=== PATIENT | female | born 1960 | race Asian ===

== ENCOUNTER 2019-04-01 19:52 | Inpatient (IN) | payer SELFPAY ==
[~2019-04-01] VITALS: Ht 152.4 cm; Wt 61.3 kg
--- NOTE | 2019-04-01 20:23 | NUR ---
DR SANTOS AT [facility] WITH PT
[2019-04-01] MEDS ORDERED: calcium chloride 100 MG/1 ML inj IV ONE (20:40)
[2019-04-01] MEDS ORDERED: sodium polystyrene sulfonate 15gm/60ml oral suspension PO ONE (20:40)
[2019-04-01 20:48] LABS: BASOPHILS % (AUTO) 0.2 % (0-1); EOSINOPHILS % (AUTO) 0 % (0-6); HEMATOCRIT 30.3 % (35.0-45.0); HEMOGLOBIN 9.5 g/dl (12.0-16.0); LYMPHOCYTES # (AUTO) 1.3 X10'3 (1.1-4.8); LYMPHOCYTES % (AUTO) 10.5 % (21-51); MEAN CORPUSCULAR HEMOGLOBIN 27.3 PG (27.0-31.0); MEAN CORPUSCULAR HGB CONC 31.3 g/dL (33.0-36.5); MEAN CORPUSCULAR VOLUME 87.1 FL (78-98); MEAN PLATELET VOLUME 8.6 FL (7.4-10.4); MONOCYTES # (AUTO) 1.2 X10'3 (0-0.9); MONOCYTES % (AUTO) 9.8 % (2-12); NEUTROPHILS # (AUTO) 9.6 X10'3 (1.8-7.7); NEUTROPHILS % (AUTO) 79.5 % (42-75); PLATELET COUNT 200 X10'3 (140-440); RED BLOOD COUNT 3.48 X10'6 (4.20-5.60); RED CELL DISTRIBUTION WIDTH 14.9 % (11.5-14.5); WHITE BLOOD COUNT 12.1 X10'3 (4.5-11.0)
[2019-04-01 21:11] LABS: PARTIAL THROMBOPLASTIN TIME 32 SECONDS (22-32)
[2019-04-01 21:13] LABS: ALANINE AMINOTRANSFERASE 47 U/L (12-78); ALBUMIN 3.3 G/DL (3.4-5.0); ALBUMIN/GLOBULIN RATIO 0.9 (1.1-1.5); ALKALINE PHOSPHATASE 59 IU/L (46-116); ANION GAP 31 (8-16); ASPARTATE AMINO TRANSFERASE 59 U/L (10-37); BILIRUBIN,TOTAL 0.2 MG/DL (0.1-1.0); BLOOD UREA NITROGEN 63 MG/DL (7-18); CALCIUM 7.9 MG/DL (8.5-10.1); CHLORIDE 103 MMOL/L (99-107); CREATININE 7.89 MG/DL (0.40-0.90); GLUCOSE 188 MG/DL (70-104); SODIUM 142 MMOL/L (135-145); TOTAL PROTEIN 6.8 G/DL (6.4-8.2); eGFR 5 ML/MIN
[2019-04-01 21:16] LABS: POTASSIUM 6.8 MMOL/L (3.5-5.1)
[2019-04-01 21:17] LABS: TOTAL CARBON DIOXIDE 7.9 MMOL/L (24-32)
[2019-04-01] MEDS ORDERED: dextrose 50%-water 50ml dispensing syringe IV ONE (21:25)
[2019-04-01] MEDS ORDERED: insulin regular, human 10 units/0.1 ml syringe IV ONE (21:25)
[2019-04-01] MEDS ORDERED: albuterol 2.5 MG/3 ML nebule CONTNEB PRN (21:30)
[2019-04-01] MEDS ORDERED: METFORM PO (21:31)
[2019-04-01] MEDS ORDERED: SIMV20TA5 PO (21:31)
[2019-04-01] MEDS ORDERED: ATEN50TA PO (21:31)
[2019-04-01] MEDS ORDERED: AMLO-93 PO (21:31)
[2019-04-01] MEDS ORDERED: ASPI-1265 PO (21:31)
[2019-04-01] MEDS ORDERED: magnesium hydroxide 30ml (MOM) UD suspension PO PRN (22:30)
[2019-04-01] MEDS ORDERED: ondansetron/PF 4mg/2ml inj IV PRN (22:30)
[2019-04-01] MEDS ORDERED: acetaminophen 325mg tablet PO PRN (22:30)
[2019-04-01] MEDS ORDERED: glucagon, human recombinant 1mg kit SUBCUT PRN (22:35)
[2019-04-01] MEDS ORDERED: dextrose ORAL solution 15 GM/59 ML bottle PO PRN (22:35)
[2019-04-01] MEDS ORDERED: MESSAGE TO PHARMACY PO ONE (22:35)
[2019-04-01] MEDS ORDERED: dextrose 50%-water 50ml dispensing syringe IV PRN ×2 (22:35)
[2019-04-01 23:11] LABS: ABG HCO3 4.9 mmol/L (22.0-26.0); ABG OXYGEN SATURATION 94.2 % (95-98); ABG PCO2 (T) 20.6 mmHg (35.0-45.0); ALLEN'S TEST Positive; FCOHb 0.3 % (0.5-1.5); FMetHb 0.2 % (0.3-1.12); FO2Hb 93.7 % (94-100); PATIENT TEMPERATURE 36.7; RESPIRATORY RATE (OBSERVED) 16 b/min; TOTAL HEMOGLOBIN 10.4 G/dl (12.0-16.0)
[2019-04-01] MEDS ORDERED: sodium bicarbonate (8.4%) 1 mEq/ml syringe IV STA (23:13)
[2019-04-01] MEDS ORDERED: sodium bicarbonate (8.4%) 1 mEq/ml syringe IV ONE (23:15)
[2019-04-02] VITALS (22 sets, daily range): BP systolic 91–148; BP diastolic 44–83
--- NOTE | 2019-04-02 00:05 | NUR ---
Patient in ER. I have received report from HARIKA Luo and had the opportunity to ask questions. Patient to be transferred to ICU room 2045. Waiting for x-ray confirmation of Central line then STEMHOLE BORER will start bicarb drip as ordered.
[2019-04-02 00:06] LABS: HEMOGLOBIN A1C 8.7 % (4.5-6.2)
[2019-04-02 00:14] LABS: POTASSIUM 4.5 MMOL/L (3.5-5.1)
[2019-04-02] MEDS: sodium bicarbonate (8.4%) inj. 75 MEQ in dextrose 5% water 500ml 500 ML IV SCH ×5 (00:20→19:10)
--- NOTE | 2019-04-02 00:40 | NUR ---
Patient arrived to room 2045 via ER [facility] with family and UROGYNAECOLOGIST in attendance. Patient Ambulated with one person assistance from [facility] to bed. Patient shaking, responds yes that she is cold when asked through her nephew that translates for her. Patient is Ignacio speaking only. Shorty after arrival patient up to use bedside commode. Patient BP assessed with MAP of 55. Patient currently getting 500 ml fluid bolus and Sodium bicarb drip at 62.5 ml.hr. Patient assisted back to bed. Explained to patient that she could not get up anymore due to her blood pressure, patient motioning that she needs the commode. Patient assisted onto a bedpan. 2 RN skin assessment done.Patient with right IJ quad lumen central line. PIV to left AC, R foot.
--- NOTE | 2019-04-02 01:00 | NUR ---
Admission questions not completed secondary to no sanitation truck driver available and patients family went home. Will need to be completed on day shift. Patient has a cell phone and charger operator at bedside.
[2019-04-02] MEDS ORDERED: NORepinephrine 8mg/ 250ml NS 250 ML IV PRN (01:24)
--- NOTE | 2019-04-02 01:24 | NUR ---
Cabrera Biggs , LEARNING DESIGNER at bedside, advised of patients current blood pressure of 73/31 after 500 ml fluid bolus. States he will order Levophed.
[2019-04-02] MEDS ORDERED: NORepinephrine 8mg/ 250ml NS 250 ML IV ONE (01:31)
[2019-04-02] MEDS ORDERED: normal saline 1000ml 1,000 ML IV ONE (01:50)
--- NOTE | 2019-04-02 02:10 | NUR ---
Unable to get an full decator operator on the blue phone a Ignacio full decator operator was not available. Dr. Mayorga at bedside. Dr. Mayorga called Dr. Luu in the ER for 2 physician emergency consent. It was agreed that the patient needs dialysis urgently. Procedure was performed after timeout. Addendum: 04/02/19 at 0551 by Carlota Hua RN late entry: Prior to procedure Nursing staff and Cabrera Biggs NP attempted to contact her nephlatasha Cervantse. No answer on phone, voicemail not set up yet.
[2019-04-02] MEDS ORDERED: heparin 1,000unit/ml 10ml vial 10 ML IV ONE (02:29)
[2019-04-02] MEDS ORDERED: heparin 1,000 units/ml 10ml inj IV ONE (02:30)
[2019-04-02] MEDS ORDERED: albumin (human) 25% 100ml IV 100 ML IV PRN (02:30)
[2019-04-02] MEDS ORDERED: heparin 1,000 units/ml 10ml inj HE ONE ×2 (02:35)
[2019-04-02 04:03] LABS: BASOPHILS % (AUTO) 0.1 % (0-1); EOSINOPHILS % (AUTO) 0 % (0-6); HEMATOCRIT 29.8 % (35.0-45.0); LYMPHOCYTES # (AUTO) 1.3 X10'3 (1.1-4.8); LYMPHOCYTES % (AUTO) 7.5 % (21-51); MEAN CORPUSCULAR HEMOGLOBIN 26.8 PG (27.0-31.0); MEAN CORPUSCULAR HGB CONC 30.2 g/dL (33.0-36.5); MEAN CORPUSCULAR VOLUME 88.8 FL (78-98); MEAN PLATELET VOLUME 8.9 FL (7.4-10.4); MONOCYTES # (AUTO) 1.2 X10'3 (0-0.9); MONOCYTES % (AUTO) 7.1 % (2-12); NEUTROPHILS # (AUTO) 14.7 X10'3 (1.8-7.7); NEUTROPHILS % (AUTO) 85.3 % (42-75); PLATELET COUNT 221 X10'3 (140-440); RED BLOOD COUNT 3.35 X10'6 (4.20-5.60); WHITE BLOOD COUNT 17.2 X10'3 (4.5-11.0)
[2019-04-02 04:21] LABS: ALANINE AMINOTRANSFERASE 48 U/L (12-78); ALBUMIN 3.1 G/DL (3.4-5.0); ALKALINE PHOSPHATASE 54 IU/L (46-116); ANION GAP 31 (8-16); ASPARTATE AMINO TRANSFERASE 62 U/L (10-37); BILIRUBIN,TOTAL 0.3 MG/DL (0.1-1.0); BLOOD UREA NITROGEN 60 MG/DL (7-18); BUN/CREATININE RATIO 7.1 (6.6-38.0); CALCIUM 7.7 MG/DL (8.5-10.1); CHLORIDE 107 MMOL/L (99-107); CREATININE 8.42 MG/DL (0.40-0.90); GLUCOSE 147 MG/DL (70-104); MAGNESIUM 1.5 MG/DL (1.5-2.4); POTASSIUM 4.7 MMOL/L (3.5-5.1); SODIUM 146 MMOL/L (135-145); TOTAL PROTEIN 6.3 G/DL (6.4-8.2); eGFR 5 ML/MIN
[2019-04-02 04:25] LABS: TOTAL CARBON DIOXIDE 7.7 MMOL/L (24-32)
[2019-04-02 04:27] LABS: PHOSPHORUS 10.6 MG/DL (2.3-4.5)
--- NOTE | 2019-04-02 06:30 | NUR ---
Patient in room ICU 2045. I have received report from desktop support engineer RN and had the opportunity to ask questions and assume patient care.
--- NOTE | 2019-04-02 06:34 | NUR ---
Problems reprioritized. Patient report given, questions answered & plan of care reviewed with HARIKA Mcdonough.
[2019-04-02] MEDS: acetaminophen 325mg tablet PO PRN ×2 (07:53→16:14)
--- NOTE | 2019-04-02 09:00 | NUR ---
nephew and at bedside, translation via same, questions answered
--- NOTE | 2019-04-02 09:45 | NUR ---
dr fong updated on labs and patients status, new orders received.
--- NOTE | 2019-04-02 10:37 | NUR ---
DM consult: Pt with A1c 8.7. Pt documented as A/O x 1 and confused, DM education not appropriate at this time. Pt admit for emergently needed dialysis to treat Metformin induced lactic acidosis with GUCCI and possibly with underlying CKD III per H&P. Pt currently on renal CHO controlled diet, pending documentation of PO intake. Noted that phosphorus elevated, currently 10.6, d/w RN who reports pt does not take a phos binder at home however agrees to discuss the addition of a phos binder with . KULDIP 04/02. No edema or wounds. Will continue to follow. Recommendations: 1) Continue renal CHO controlled diet 2) Monitor need for ONS 3) DM education prior to discharge once alert and oriented; will need booky 4) Phos binder with MD approval 5) Wt per rx Addendum: 04/02/19 at [address] Amended: Links added.
[2019-04-02 14:26] LABS: BASOPHILS % (AUTO) 0.1 % (0-1); EOSINOPHILS % (AUTO) 0 % (0-6); HEMATOCRIT 25.9 % (35.0-45.0); HEMOGLOBIN 8.7 g/dl (12.0-16.0); LYMPHOCYTES # (AUTO) 1.6 X10'3 (1.1-4.8); LYMPHOCYTES % (AUTO) 14.5 % (21-51); MEAN CORPUSCULAR HEMOGLOBIN 27.7 PG (27.0-31.0); MEAN CORPUSCULAR HGB CONC 33.6 g/dL (33.0-36.5); MEAN CORPUSCULAR VOLUME 82.5 FL (78-98); MEAN PLATELET VOLUME 8.3 FL (7.4-10.4); MONOCYTES % (AUTO) 8.8 % (2-12); NEUTROPHILS # (AUTO) 8.7 X10'3 (1.8-7.7); NEUTROPHILS % (AUTO) 76.6 % (42-75); PLATELET COUNT 182 X10'3 (140-440); RED BLOOD COUNT 3.13 X10'6 (4.20-5.60); WHITE BLOOD COUNT 11.3 X10'3 (4.5-11.0)
[2019-04-02 14:49] LABS: ALANINE AMINOTRANSFERASE 45 U/L (12-78); ALKALINE PHOSPHATASE 56 IU/L (46-116); ANION GAP 12 (8-16); ASPARTATE AMINO TRANSFERASE 54 U/L (10-37); BILIRUBIN,TOTAL 0.4 MG/DL (0.1-1.0); BLOOD UREA NITROGEN 24 MG/DL (7-18); BUN/CREATININE RATIO 5.9 (6.6-38.0); CALCIUM 7.2 MG/DL (8.5-10.1); CHLORIDE 99 MMOL/L (99-107); GLUCOSE 196 MG/DL (70-104); MAGNESIUM 1.4 MG/DL (1.5-2.4); PHOSPHORUS 4.5 MG/DL (2.3-4.5); POTASSIUM 3.5 MMOL/L (3.5-5.1); SODIUM 139 MMOL/L (135-145); TOTAL CARBON DIOXIDE 27.6 MMOL/L (24-32); TOTAL PROTEIN 6.1 G/DL (6.4-8.2); eGFR 11 ML/MIN
[2019-04-02 14:59] LABS: TROPONIN I 4.15 NG/ML (0.0-0.05)
--- NOTE | 2019-04-02 15:01 | NUR ---
desating to 86 % on room air, 1 l/min O2 applied via nasal prongs
[2019-04-02] MEDS ORDERED: magnesium 2GM in 50ml NS 50 ML IV PRN (15:10)
[2019-04-02] MEDS ORDERED: magnesium 4gm in 100ml NS 100 ML IV PRN (15:10)
[2019-04-02] MEDS: aspirin 81mg tab.chew PO SCH (15:50)
[2019-04-02] MEDS: enoxaparin 60mg/0.6ml syringe SUBCUT SCH (15:51)
[2019-04-02] MEDS ORDERED: magnesium Cl slow-release 64mg tablet PO PRN (17:25)
[2019-04-02] MEDS: K and/or MAG REPLACEMENT MC SCH (18:03)
--- NOTE | 2019-04-02 18:14 | NUR ---
Problems reprioritized. Patient report given, questions answered & plan of care reviewed with transportation engineering technician RN.
--- NOTE | 2019-04-02 18:30 | NUR ---
Patient in room ICU 2045. I have received report from HARIKA Mcdonough and had the opportunity to ask questions and assume patient care. Patient is awake at time of report, does not appear to be in distress.
[2019-04-02] MEDS: carVEDilol 3.125mg tablet PO SCH (19:10)
[2019-04-02] MEDS: insulin Lispro (HumaLOG) vial - multi-dose SQ SCH (19:26)
--- NOTE | 2019-04-02 20:31 | NUR ---
Spoke with Cabrera Biggs NP re continuing Sodium Bicarb drip. Patients last Bicarb level on her blood work was 27.6. Order to Stop the Bicarb drip and Hang normal saline at 100ml/hr. Made him aware of trending of troponins, no new orders. Patients Lactic acid is 5.0, Per Cabrera Biggs NP recheck lactic acid in the morning with AM labs.
[2019-04-02] MEDS: normal saline 1000ml 1,000 ML IV SCH (20:59)
[2019-04-02] MEDS: insulin glargine (Lantus) pen - multi-dose SQ SCH (21:49)
[2019-04-03] VITALS (24 sets, daily range): BP systolic 100–149; BP diastolic 61–88
[2019-04-03 02:14] LABS: BASOPHILS % (AUTO) 0.2 % (0-1); EOSINOPHILS % (AUTO) 0.5 % (0-6); HEMATOCRIT 27.1 % (35.0-45.0); HEMOGLOBIN 9.2 g/dl (12.0-16.0); LYMPHOCYTES # (AUTO) 2.2 X10'3 (1.1-4.8); LYMPHOCYTES % (AUTO) 29.8 % (21-51); MEAN CORPUSCULAR HEMOGLOBIN 27.8 PG (27.0-31.0); MEAN CORPUSCULAR HGB CONC 33.8 g/dL (33.0-36.5); MEAN CORPUSCULAR VOLUME 82.4 FL (78-98); MEAN PLATELET VOLUME 8.4 FL (7.4-10.4); MONOCYTES # (AUTO) 0.8 X10'3 (0-0.9); MONOCYTES % (AUTO) 10.3 % (2-12); NEUTROPHILS # (AUTO) 4.5 X10'3 (1.8-7.7); NEUTROPHILS % (AUTO) 59.2 % (42-75); PLATELET COUNT 176 X10'3 (140-440); WHITE BLOOD COUNT 7.5 X10'3 (4.5-11.0)
[2019-04-03 02:25] LABS: ALANINE AMINOTRANSFERASE 40 U/L (12-78); ALBUMIN 3.2 G/DL (3.4-5.0); ALKALINE PHOSPHATASE 57 IU/L (46-116); ANION GAP 6 (8-16); ASPARTATE AMINO TRANSFERASE 41 U/L (10-37); BILIRUBIN,TOTAL 0.3 MG/DL (0.1-1.0); BLOOD UREA NITROGEN 30 MG/DL (7-18); BUN/CREATININE RATIO 6.7 (6.6-38.0); CALCIUM 7.1 MG/DL (8.5-10.1); CHLORIDE 105 MMOL/L (99-107); CREATININE 4.46 MG/DL (0.40-0.90); GLUCOSE 65 MG/DL (70-104); MAGNESIUM 1.7 MG/DL (1.5-2.4); PHOSPHORUS 4.3 MG/DL (2.3-4.5); POTASSIUM 3.1 MMOL/L (3.5-5.1); SODIUM 145 MMOL/L (135-145); TOTAL CARBON DIOXIDE 33.7 MMOL/L (24-32); TOTAL PROTEIN 6.3 G/DL (6.4-8.2); eGFR 10 ML/MIN
[2019-04-03 02:28] LABS: TROPONIN I 2.86 NG/ML (0.0-0.05)
--- NOTE | 2019-04-03 02:40 | NUR ---
Patient blood glucose decreased to 64. One bottle of oral dextrose administered. Patient also ate one yogurt to help keep her glucose levels up until breakfast. Upon the 15 minute recheck patients blood glucose was 67. One more oral glucose and another snack, at the second 15 minute re check. Patients blood sugar is 146. With the help of a dip stand loader [place]in[place] patient nods head yes to the question " Are you feeling better?". Will continue to monitor.
[2019-04-03] MEDS: dextrose ORAL solution 15 GM/59 ML bottle PO PRN ×2 (02:46→03:05)
[2019-04-03] MEDS: normal saline 1000ml 1,000 ML IV SCH ×2 (05:49→15:18)
--- NOTE | 2019-04-03 06:31 | NUR ---
Problems reprioritized. Patient report given, questions answered & plan of care reviewed with HARIKA Martines.
[2019-04-03] MEDS: K and/or MAG REPLACEMENT MC SCH (08:00)
[2019-04-03 08:13] LABS: HBSAG SCREEN Negative (Negative)
[2019-04-03] MEDS ORDERED: aspirin 81mg tab.chew PO SCH (08:30)
[2019-04-03] MEDS: carVEDilol 3.125mg tablet PO SCH ×2 (09:16→20:38)
[2019-04-03] MEDS: aspirin 81mg tab.chew PO SCH (09:16)
[2019-04-03] MEDS: enoxaparin 60mg/0.6ml syringe SUBCUT SCH (09:17)
[2019-04-03] MEDS: insulin Lispro (HumaLOG) vial - multi-dose SQ SCH ×4 (09:24→20:39)
[2019-04-03] MEDS: potassium Cl 20 mEq SR tablet PO SCH ×2 (10:32→12:00)
[2019-04-03] MEDS ORDERED: potassium Cl 20 mEq SR tablet PO ONE (14:25)
--- NOTE | 2019-04-03 18:16 | NUR ---
Patient in room ICU 2045. I have received report from Bobbi SHABAZZ and had the opportunity to ask questions and assume patient care. Pt resting in bed on room air with spo2 at 97%, no c/o pain, no s/s of distress, IV fluids infusing per provider orders via central line. Call light in reach. All monitoring alarms audible. Will continue to monitor.
--- NOTE | 2019-04-03 19:40 | NUR ---
Family into visit.
[2019-04-03] MEDS: insulin glargine (Lantus) pen - multi-dose SQ SCH (20:40)
--- NOTE | 2019-04-03 22:05 | NUR ---
Pt talking on cell phone.
[2019-04-04] VITALS (15 sets, daily range): BP systolic 98–151; BP diastolic 56–83
[2019-04-04] MEDS: normal saline 1000ml 1,000 ML IV SCH ×3 (01:29→22:35)
[2019-04-04 04:48] LABS: BASOPHILS % (AUTO) 0.5 % (0-1); EOSINOPHILS # (AUTO) 0.3 X10'3 (0-0.9); EOSINOPHILS % (AUTO) 3.3 % (0-6); HEMATOCRIT 31.6 % (35.0-45.0); HEMOGLOBIN 10.3 g/dl (12.0-16.0); LYMPHOCYTES # (AUTO) 2.4 X10'3 (1.1-4.8); LYMPHOCYTES % (AUTO) 27.6 % (21-51); MEAN CORPUSCULAR HEMOGLOBIN 27.5 PG (27.0-31.0); MEAN CORPUSCULAR HGB CONC 32.7 g/dL (33.0-36.5); MEAN CORPUSCULAR VOLUME 84.1 FL (78-98); MEAN PLATELET VOLUME 8.8 FL (7.4-10.4); MONOCYTES % (AUTO) 11.8 % (2-12); NEUTROPHILS % (AUTO) 56.8 % (42-75); PLATELET COUNT 190 X10'3 (140-440); RED BLOOD COUNT 3.76 X10'6 (4.20-5.60); WHITE BLOOD COUNT 8.8 X10'3 (4.5-11.0)
--- NOTE | 2019-04-04 04:48 | NUR ---
Pt able to gesture and make needs known. No change in condition.
[2019-04-04 04:51] LABS: ALANINE AMINOTRANSFERASE 34 U/L (12-78); ALBUMIN 3.4 G/DL (3.4-5.0); ALKALINE PHOSPHATASE 64 IU/L (46-116); ANION GAP 12 (8-16); ASPARTATE AMINO TRANSFERASE 29 U/L (10-37); BILIRUBIN,TOTAL 0.4 MG/DL (0.1-1.0); BLOOD UREA NITROGEN 31 MG/DL (7-18); BUN/CREATININE RATIO 7.9 (6.6-38.0); CALCIUM 7.3 MG/DL (8.5-10.1); CHLORIDE 106 MMOL/L (99-107); GLUCOSE 172 MG/DL (70-104); MAGNESIUM 1.5 MG/DL (1.5-2.4); PHOSPHORUS 3.1 MG/DL (2.3-4.5); POTASSIUM 3.3 MMOL/L (3.5-5.1); SODIUM 142 MMOL/L (135-145); TOTAL CARBON DIOXIDE 23.9 MMOL/L (24-32); TOTAL PROTEIN 6.9 G/DL (6.4-8.2); eGFR 12 ML/MIN
--- NOTE | 2019-04-04 06:16 | NUR ---
Problems reprioritized. Patient report given, questions answered & plan of care reviewed with Mady SHABAZZ.
[2019-04-04] MEDS ORDERED: potassium Cl 20 mEq SR tablet PO STA (07:54)
[2019-04-04] MEDS: carVEDilol 3.125mg tablet PO SCH ×2 (08:20→19:46)
[2019-04-04] MEDS: aspirin 81mg tab.chew PO SCH (08:21)
[2019-04-04] MEDS: enoxaparin 60mg/0.6ml syringe SUBCUT SCH (08:22)
[2019-04-04] MEDS: insulin Lispro (HumaLOG) vial - multi-dose SQ SCH ×3 (08:35→19:49)
[2019-04-04] MEDS: K and/or MAG REPLACEMENT MC SCH (08:53)
--- NOTE | 2019-04-04 14:30 | NUR ---
patient arrived on unit. was orientated to room. call light given. my assessment concurs with morning assessment
--- NOTE | 2019-04-04 18:28 | NUR ---
Problems reprioritized. Patient report given, questions answered & plan of care reviewed with Audrey SHABAZZ.
[2019-04-04] MEDS: insulin glargine (Lantus) pen - multi-dose SQ SCH (21:37)
[2019-04-05 03:00] VITALS: BP 134/71
[2019-04-05] MEDS: normal saline 1000ml 1,000 ML IV SCH ×2 (03:34→18:35)
[2019-04-05 05:12] LABS: BASOPHILS # (AUTO) 0.1 X10'3 (0-0.2); BASOPHILS % (AUTO) 0.8 % (0-1); EOSINOPHILS # (AUTO) 0.5 X10'3 (0-0.9); EOSINOPHILS % (AUTO) 6.5 % (0-6); HEMOGLOBIN 10.6 g/dl (12.0-16.0); LYMPHOCYTES # (AUTO) 2.5 X10'3 (1.1-4.8); LYMPHOCYTES % (AUTO) 31.5 % (21-51); MEAN CORPUSCULAR HEMOGLOBIN 27.7 PG (27.0-31.0); MEAN CORPUSCULAR HGB CONC 32.9 g/dL (33.0-36.5); MEAN PLATELET VOLUME 8.4 FL (7.4-10.4); MONOCYTES # (AUTO) 0.8 X10'3 (0-0.9); MONOCYTES % (AUTO) 10.4 % (2-12); NEUTROPHILS % (AUTO) 50.8 % (42-75); PLATELET COUNT 198 X10'3 (140-440); RED BLOOD COUNT 3.81 X10'6 (4.20-5.60); RED CELL DISTRIBUTION WIDTH 13.7 % (11.5-14.5); WHITE BLOOD COUNT 7.8 X10'3 (4.5-11.0)
[2019-04-05 05:38] LABS: ALANINE AMINOTRANSFERASE 30 U/L (12-78); ALBUMIN 3.4 G/DL (3.4-5.0); ALBUMIN/GLOBULIN RATIO 0.9 (1.1-1.5); ALKALINE PHOSPHATASE 71 IU/L (46-116); ANION GAP 11 (8-16); ASPARTATE AMINO TRANSFERASE 21 U/L (10-37); BILIRUBIN,TOTAL 0.2 MG/DL (0.1-1.0); CHLORIDE 106 MMOL/L (99-107); CREATININE 2.72 MG/DL (0.40-0.90); GLUCOSE 369 MG/DL (70-104); MAGNESIUM 1.5 MG/DL (1.5-2.4); PHOSPHORUS 2.9 MG/DL (2.3-4.5); POTASSIUM 3.6 MMOL/L (3.5-5.1); SODIUM 140 MMOL/L (135-145); TOTAL PROTEIN 7.1 G/DL (6.4-8.2); eGFR 18 ML/MIN
[2019-04-05 05:55] LABS: BLOOD UREA NITROGEN 28 MG/DL (7-18); BUN/CREATININE RATIO 10.3 (6.6-38.0)
--- NOTE | 2019-04-05 06:38 | NUR ---
Patient in room PCU 3028 B. I have received report from HARIKA Guzman and had the opportunity to ask questions and assume patient care.
[2019-04-05 07:00] VITALS: BP 149/85
[2019-04-05] MEDS: K and/or MAG REPLACEMENT MC SCH (08:00)
[2019-04-05] MEDS: insulin Lispro (HumaLOG) vial - multi-dose SQ SCH ×3 (08:35→19:53)
[2019-04-05] MEDS: enoxaparin 60mg/0.6ml syringe SUBCUT SCH (08:36)
[2019-04-05] MEDS: aspirin 81mg tab.chew PO SCH (08:36)
[2019-04-05] MEDS: carVEDilol 3.125mg tablet PO SCH ×2 (08:36→19:49)
[2019-04-05 11:00] VITALS: BP 150/91
[2019-04-05 15:00] VITALS: BP 156/84
--- NOTE | 2019-04-05 18:08 | NUR ---
Problems reprioritized. Patient report given, questions answered & plan of care reviewed with HARIKA Guzman.
--- NOTE | 2019-04-05 18:27 | NUR ---
I have reviewed and agree with all interventions, assessments performed and documented by Dianne SHABAZZ.
[2019-04-05 19:00] VITALS: BP 149/84
[2019-04-05] MEDS: insulin glargine (Lantus) pen - multi-dose SQ SCH (21:30)
[2019-04-05 23:00] VITALS: BP 158/84
[2019-04-06] VITALS (7 sets, daily range): BP systolic 134–180; BP diastolic 76–87
[2019-04-06] MEDS: normal saline 1000ml 1,000 ML IV SCH ×3 (03:51→22:03)
[2019-04-06 04:48] LABS: BASOPHILS # (AUTO) 0.1 X10'3 (0-0.2); BASOPHILS % (AUTO) 0.7 % (0-1); EOSINOPHILS # (AUTO) 0.5 X10'3 (0-0.9); EOSINOPHILS % (AUTO) 6.1 % (0-6); HEMOGLOBIN 10.6 g/dl (12.0-16.0); LYMPHOCYTES % (AUTO) 34.6 % (21-51); MEAN CORPUSCULAR HEMOGLOBIN 27.5 PG (27.0-31.0); MEAN CORPUSCULAR VOLUME 83.2 FL (78-98); MEAN PLATELET VOLUME 8.8 FL (7.4-10.4); MONOCYTES # (AUTO) 0.8 X10'3 (0-0.9); MONOCYTES % (AUTO) 8.7 % (2-12); NEUTROPHILS # (AUTO) 4.4 X10'3 (1.8-7.7); NEUTROPHILS % (AUTO) 49.9 % (42-75); PLATELET COUNT 211 X10'3 (140-440); RED BLOOD COUNT 3.84 X10'6 (4.20-5.60); WHITE BLOOD COUNT 8.8 X10'3 (4.5-11.0)
[2019-04-06 05:12] LABS: ALANINE AMINOTRANSFERASE 39 U/L (12-78); ALBUMIN 3.6 G/DL (3.4-5.0); ALBUMIN/GLOBULIN RATIO 0.9 (1.1-1.5); ALKALINE PHOSPHATASE 68 IU/L (46-116); ANION GAP 11 (8-16); ASPARTATE AMINO TRANSFERASE 28 U/L (10-37); BILIRUBIN,TOTAL 0.3 MG/DL (0.1-1.0); BLOOD UREA NITROGEN 19 MG/DL (7-18); BUN/CREATININE RATIO 10.3 (6.6-38.0); CALCIUM 8.7 MG/DL (8.5-10.1); CHLORIDE 107 MMOL/L (99-107); CREATININE 1.85 MG/DL (0.40-0.90); GLUCOSE 163 MG/DL (70-104); MAGNESIUM 1.3 MG/DL (1.5-2.4); PHOSPHORUS 3.7 MG/DL (2.3-4.5); POTASSIUM 3.3 MMOL/L (3.5-5.1); SODIUM 142 MMOL/L (135-145); TOTAL CARBON DIOXIDE 23.6 MMOL/L (24-32); TOTAL PROTEIN 7.5 G/DL (6.4-8.2); eGFR 28 ML/MIN
[2019-04-06] MEDS: enoxaparin 60mg/0.6ml syringe SUBCUT SCH (08:50)
[2019-04-06] MEDS: aspirin 81mg tab.chew PO SCH (08:51)
[2019-04-06] MEDS: carVEDilol 3.125mg tablet PO SCH ×2 (08:51→19:30)
[2019-04-06] MEDS: insulin Lispro (HumaLOG) vial - multi-dose SQ SCH ×3 (10:13→19:30)
--- NOTE | 2019-04-06 11:46 | NUR ---
Patient in room PCU 3028. I have received report from Art RN and had the opportunity to ask questions and assume patient care. Pt is in bed w/ daughter at bedside. all needs met at this time. will continue to monitor.
[2019-04-06] MEDS: insulin glargine (Lantus) pen - multi-dose SQ SCH (22:03)
[2019-04-07 02:00] VITALS: BP 139/80
[2019-04-07 04:44] LABS: BASOPHILS # (AUTO) 0.1 X10'3 (0-0.2); BASOPHILS % (AUTO) 1.1 % (0-1); EOSINOPHILS # (AUTO) 0.5 X10'3 (0-0.9); EOSINOPHILS % (AUTO) 6.4 % (0-6); HEMATOCRIT 29.6 % (35.0-45.0); HEMOGLOBIN 9.7 g/dl (12.0-16.0); LYMPHOCYTES # (AUTO) 3.4 X10'3 (1.1-4.8); LYMPHOCYTES % (AUTO) 42.5 % (21-51); MEAN CORPUSCULAR HEMOGLOBIN 27.6 PG (27.0-31.0); MEAN CORPUSCULAR HGB CONC 32.8 g/dL (33.0-36.5); MEAN CORPUSCULAR VOLUME 84.1 FL (78-98); MEAN PLATELET VOLUME 8.9 FL (7.4-10.4); MONOCYTES # (AUTO) 0.8 X10'3 (0-0.9); MONOCYTES % (AUTO) 9.9 % (2-12); NEUTROPHILS # (AUTO) 3.2 X10'3 (1.8-7.7); NEUTROPHILS % (AUTO) 40.1 % (42-75); PLATELET COUNT 201 X10'3 (140-440); RED BLOOD COUNT 3.52 X10'6 (4.20-5.60); RED CELL DISTRIBUTION WIDTH 13.8 % (11.5-14.5)
[2019-04-07 05:10] LABS: ALANINE AMINOTRANSFERASE 44 U/L (12-78); ALBUMIN 3.4 G/DL (3.4-5.0); ALBUMIN/GLOBULIN RATIO 0.9 (1.1-1.5); ALKALINE PHOSPHATASE 78 IU/L (46-116); ANION GAP 12 (8-16); ASPARTATE AMINO TRANSFERASE 35 U/L (10-37); BILIRUBIN,TOTAL 0.2 MG/DL (0.1-1.0); BLOOD UREA NITROGEN 17 MG/DL (7-18); BUN/CREATININE RATIO 10.4 (6.6-38.0); CALCIUM 8.4 MG/DL (8.5-10.1); CHLORIDE 110 MMOL/L (99-107); CREATININE 1.64 MG/DL (0.40-0.90); GLUCOSE 197 MG/DL (70-104); MAGNESIUM 1.3 MG/DL (1.5-2.4); PHOSPHORUS 3.7 MG/DL (2.3-4.5); POTASSIUM 3.9 MMOL/L (3.5-5.1); SODIUM 143 MMOL/L (135-145); TOTAL CARBON DIOXIDE 21.4 MMOL/L (24-32); eGFR 32 ML/MIN
--- NOTE | 2019-04-07 06:20 | NUR ---
Patient in room PCU 3028. I have received report from Carola SHABAZZ and had the opportunity to ask questions and assume patient care.
--- NOTE | 2019-04-07 06:48 | NUR ---
Problems reprioritized. Patient report given, questions answered & plan of care reviewed with HARIKA Bishpo.
[2019-04-07 06:55] VITALS: BP 152/87
[2019-04-07] MEDS: normal saline 1000ml 1,000 ML IV SCH (07:55)
[2019-04-07] MEDS: carVEDilol 3.125mg tablet PO SCH (08:38)
[2019-04-07] MEDS: aspirin 81mg tab.chew PO SCH (08:38)
[2019-04-07] MEDS: enoxaparin 60mg/0.6ml syringe SUBCUT SCH (08:39)
[2019-04-07] MEDS: insulin Lispro (HumaLOG) vial - multi-dose SQ SCH (08:49)
[2019-04-07] MEDS ORDERED: CANAGLIFLOZIN 100 MG TABLET PO SCH (09:00)
[2019-04-07 11:00] VITALS: BP 142/85
[2019-04-07] MEDS ORDERED: INSU100V11 SQ (13:28)
[2019-04-07] MEDS ORDERED: CANA100T PO (13:28)
[2019-04-07 15:00] VITALS: BP_SYST 148; BP_SYST 152; BP_DIAS 79; BP_DIAS 87
--- NOTE | 2019-04-07 15:25 | NUR ---
Reassessment: Patient and family seen at bedside with family translating. Per family pt denies any questions about DM management. Written DM education with referral to outpatient DM class and RD contact information left at patient's bedside. LBM 04/04. Pt pending discharge. Will continue to follow. Recommendations: 1) Continue renal CHO controlled diet 2) Monitor need for ONS 3) Nhung duarte with MD approval 4) Wt per rx Addendum: 04/07/19 at [address] Amended: Links added.
--- NOTE | 2019-04-07 15:32 | NUR ---
Called Dr. Martinez to clarify medication orders. Per Dr. Martinez, Patient will continue insulin per hyperglycemic management orders. Will follow-up with PCP. Called meds into [facility] for pickup.
--- NOTE | 2019-04-07 16:00 | NUR ---
Patient discharged via W/C with [facility] staff per private vehicle without event. Belongings sent with patient, Tele & IV discontinued. Performed discharge education, verbalizes understanding. Called meds into [facility] pharmacy. VSS. Eager to leave hospital.
== END 2019-04-07 16:05 | disposition home or self-care (01) | DRG 682 ==
LOC: EDBD 19:54 → ER 19:54 → ICU 2S 04-02 00:38 → PCU 3S 04-04 14:10
PROVIDERS: ADMIT Nurse Practitioner Family; ATTEND Internal Medicine Critical Care Medicine
PROC: 02HV33Z Insertion of Infusion Device into Superior Vena Cava, Percutaneous Approach (ICD-10-PCS; 2019-04-01)
PROC: B548ZZA Ultrasonography of Superior Vena Cava, Guidance (ICD-10-PCS; 2019-04-01)
PROC: 5A1D70Z Performance of Urinary Filtration, Intermittent, Less than 6 Hours Per Day (ICD-10-PCS; principal; 2019-04-02)
PROC: 06HY33Z Insertion of Infusion Device into Lower Vein, Percutaneous Approach (ICD-10-PCS; 2019-04-02)
DX: N17.9 Acute kidney failure, unspecified (principal); I21.4 Non-ST elevation (NSTEMI) myocardial infarction; E87.2 Acidosis; N18.3 Chronic kidney disease, stage 3 (moderate); E87.5 Hyperkalemia; E11.22 Type 2 diabetes mellitus with diabetic chronic kidney disease; T38.3X5A Adverse effect of insulin and oral hypoglycemic [antidiabetic] drugs, initial encounter; E78.00 Pure hypercholesterolemia, unspecified; E86.9 Volume depletion, unspecified; I12.9 Hypertensive chronic kidney disease with stage 1 through stage 4 chronic kidney disease, or unspecified chronic kidney disease; I95.9 Hypotension, unspecified; R19.7 Diarrhea, unspecified; Z79.82 Long term (current) use of aspirin; Z79.84 Long term (current) use of oral hypoglycemic drugs; Z79.4 Long term (current) use of insulin; Y92.89 Other specified places as the place of occurrence of the external cause
CPT/HCPCS: 36415; 36556; 36600; 71045; 76775; 80053; 82800; 82803; 82948; 83036; 83605; 83735; 84100; 84132; 84145; 84484; 85018; 85025; 85610; 85730; 87081; 87340; 90935; 93005; 93306; 94760; 96374; 96375; 99291; G0257; G0378; J1644; J1650; J1815; J7030